=== PATIENT | male | born 1975 | race Caucasian/White ===

== ENCOUNTER 2024-05-06 05:58 | Day surgery (SDC) | payer OTHER ==
[~2024-05-06] VITALS: Ht 177.8 cm; Wt 95.0 kg
[~2024-05-06 05:58] MED LIST: LACTATED RINGER'S 1,000 ML IV SCH
[2024-05-06 06:12] VITALS: BP 144/89
[2024-05-06 06:41] LABS: BASOPHILS 0.9 % (0-2); EOSINOPHILS 2.2 % (0-6); HEMATOCRIT 43.6 % (35.0-50.0); HEMOGLOBIN 14.5 g/dL (12.0-18.0); LYMPHOCYTES 29.8 % (24-44); MCH 27.9 (27-36); MCHC 33.2 g/dl (30-36); MCV 84.1 fl (81-99); MONOCYTES 9.1 % (0-12); PLATELET COUNT 352 K/uL (140-440); RBC 5.19 M/ul (4.3-5.7); RDW 14.2 (10.5-15.0)
[2024-05-06 06:55] LABS: ALBUMIN 3.7 g/dL (3.4-5.0); ALBUMIN/GLOBULIN RATIO 1.19 (1.1-2.4); ANION GAP 16.8 (7-21); BILIRUBIN, TOTAL 0.3 ng/dL (0.2-1.0); BUN/CREATININE RATIO 17.3 (6.0-28.6); CALCIUM 9.5 mg/dL (8.5-10.1); CREATININE, SERUM 1.04 mg/dL (0.70-1.30); POTASSIUM 3.8 mmol/L (3.5-5.1); PROTEIN, TOTAL 6.8 g/dL (6.4-8.2)
[2024-05-06] MEDS ORDERED: IBLOOD GLUCOSE TEST STRIP 1 EA TEST VI PRN ×2 (07:00→08:15)
[2024-05-06] MEDS ORDERED: CEFAZOLIN SODIUM 2 GM/20 ML SYR IV SCH (07:00)
[2024-05-06] MEDS ORDERED: HEParin SOD (PORCINE) 5,000 UNIT/ML SDV SUB-Q SCH (07:00)
[2024-05-06] MEDS ORDERED: LIDOCAINE HCL 1% 5 ML SDV INJ ONE (07:00)
[2024-05-06] MEDS ORDERED: DEXAMETHASONE SOD PHOS 4 MG/ML VIAL ONE (07:18)
[2024-05-06] MEDS ORDERED: propofoL 200 MG/20 ML VIAL ONE (07:18)
[2024-05-06] MEDS ORDERED: ondansetron HCL 4 MG/2 ML VIAL ONE (07:18)
[2024-05-06] MEDS ORDERED: fentaNYL citrate 100 MCG/2 ML VIAL ONE (07:18)
[2024-05-06] MEDS ORDERED: ACETAMINOPHEN 1,000 MG/100 ML VIAL ONE (07:18)
[2024-05-06] MEDS ORDERED: LIDOCAINE HCL 2% 20 MG/ML VIAL INJ ONE (07:18)
[2024-05-06] MEDS ORDERED: KETOROLAC TROMETHAMINE 30 MG/ML VIAL ONE (07:18)
[2024-05-06] MEDS ORDERED: MIDAZOLAM HCL 2 MG/2 ML VIAL ONE (07:18)
--- NOTE | 2024-05-06 07:38 | NUR ---
PT NOT AVAILABLE FOR VISIT. PROVIDED PRAYER.
[2024-05-06] MEDS ORDERED: HYDROmorphone HCL 1 MG/ML SYR IV PRN (08:15)
[2024-05-06] MEDS ORDERED: NALOXONE HCL 0.4 MG SYR IV PRN ×2 (08:15→09:15)
[2024-05-06] MEDS ORDERED: fentaNYL citrate 50 MCG/ML SDV IV PRN (08:15)
[2024-05-06] MEDS ORDERED: droPERidol 5 MG/2 ML VIAL IV PRN (08:15)
[2024-05-06] MEDS ORDERED: ondansetron HCL 4 MG/2 ML VIAL IV PRN (08:15)
[2024-05-06] MEDS ORDERED: PROCHLORPERAZINE EDISYLATE 10 MG/2 ML VIAL IV PRN (08:15)
--- NOTE | 2024-05-06 09:03 | NUR ---
05/06/24 0903 Rossy Bess 0854- PT PRESENTS TO PACU, SEMI CURRY POSITION, NON REACTIVE TO STIMULUS. OPA IN PLACE, BREATHING EVEN AND NON LABORED, O2 AT 6L PER MASK. LR INFUSING TO LEFT HAND, DRESSING TO LEFT SCAPULA AND DRAIN IN PLACE. ABD SOFT, NON DISTENDED. ALL MONITORS IN PLACE.
[2024-05-06] MEDS ORDERED: HYDROCODON-ACE1 EA10 PO (09:06)
[2024-05-06] MEDS ORDERED: IBUPROFEN600 MG PO (09:06)
[2024-05-06] MEDS ORDERED: ACETAMINOPHEN500 MG PO (09:07)
[2024-05-06] MEDS ORDERED: LACTATED RINGER'S 1,000 ML IV SCH (09:15)
[2024-05-06] MEDS ORDERED: HYDROCODONE/ACETA 5/325 TAB PO PRN (09:15)
[2024-05-06] MEDS ORDERED: ACETAMINOPHEN 500 MG TAB PO PRN (09:15)
[2024-05-06] MEDS ORDERED: IBUPROFEN 600 MG TAB PO PRN (09:15)
[2024-05-06 09:20] VITALS: BP 131/76
--- NOTE | 2024-05-06 09:25 | NUR ---
Patient returns to room 9 from PACU. Report taken from JUAN Blair. Patient is awake and responding to questions upon arrival but states that he still feels drowsy. Patient has two surgical sites to his left shoulder, with a montez drain in place to his inferior site. Dressings and drain are intact. He denies any pain or nausea. Water and applesauce provided to patient. I explained to patient the expectations to be able to leave and he expressed understanding. He denies any other needs at this time. Two corrections officers remain at bedside. Bed in lowest position, call light within reach.
[2024-05-06 10:30] VITALS: BP 142/90
--- NOTE | 2024-05-06 10:35 | NUR ---
Patient at this time has met all discharge criteria. He has drank, ate, voided, and walked. He states that he feels well and is ready to leave. Report has been called to [facility]. Questions answered. Vital signs obtained. Dressings to left shoulder dry and intact. Carmine drain is draining well. Drain emptied for 10mL of sanguinous drainage. Patient reports pain a 1/10. He denies nausea. I went over discharge instructions with patient and he expressed understanding. I taught the patient how to empty his drain and he expressed understanding. IV removed. Patient was discharged via wheelchair in custody of [facility] corrections officers.
[2024-05-06] MEDS ORDERED: SEVOFLURANE 250 ML BTL INH ONE (14:09)
--- NOTE | 2024-05-07 13:03 | OR ---
[facility] [address], [place] [address] Signed DATE OF OPERATION: 05/06/2024 SURGEON: Adriel Daley MD PREOPERATIVE DIAGNOSIS: Left posterior superior giant soft tissue mass. POSTOPERATIVE DIAGNOSES: 1. Left posterior superior giant soft tissue mass. 2. 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 PROCEDURES: Excision of giant subfascial posterior superior thorax soft tissue mass. ANESTHESIA: General LMA, Kobi Quick CRNA and local 0.25% Marcaine with epinephrine. INDICATION: This 49-year-old white man is a prisoner at [facility] and was referred for evaluation of soft tissue mass of the left posterior thorax in the superior aspect. The lesion is very well circumscribed, although very large clinically about 12 to 15 cm, most likely represents a benign lipoma. He is uncertain how long it has been present, though he thinks it has grown overtime. It has been present at least two years he says. He is admitted at this time to undergo excision of the mass. He understands the risk of bleeding, infection, and need for special wound therapy and so forth. Understanding this, he wished to proceed. FINDINGS: The lipoma was most likely benign multilobulated, benign lipoma. It was down to the trapezius muscle and latissimus muscle itself. It was excised completely. Given the large space resulting, a drain was placed. DESCRIPTION OF PROCEDURE: The patient was brought to the operating room and given a general LMA type anesthetic in the lateral position left side up. His left arm was carefully padded and taped anteriorly to expose the area in question. The posterior thorax was prepared with chlorhexidine solution and draped sterilely. The skin tension lines were identified with creation of the skin and the incision made along those lines of skin tension to improve cosmesis. Dissection was carried through the dermis with electrocautery after incising with a 15 blade. Ultimately, capsule of what appeared to be a benign lipoma Electronically Signed By: ADRIEL DALEY MD 05/07/24 1303 PATIENT NAME: AMBER SCHULZ OPERATIVE REPORT DATE OF : 79 REPORT #: [id number] PHYSICIAN: ADRIEL DALEY MD PCP: NO PRIMARY CARE PHYSICIAN REPORT IS CONFIDENTIAL AND NOT TO BE RELEASED WITHOUT AUTHORIZATION [facility] [address], [place] [address] Signed was encountered. Using blunt dissection, the lipoma was freed circumferentially. Additional cautery was used in the deeper layers of it, it was completely adherent to the muscular fascia deeply including trapezius and latissimus muscle. It was fully excised with no remnants remaining. Cautery was used for the more sizeable blood vessels in the region. Photographs were taken. Irrigation was undertaken. Hemostasis was assured with electrocautery. Given the large space it would resolve, an incision was made in the anterior aspect and posterior axillary fold and a 7 mm flat Carmine deliver to the site. We secured the skin with a nylon suture and manipulated into the depths of the wound. The wound was then closed with interrupted 2-0 Vicryl and a running subcuticular 3-0 Vicryl for the skin. Steri-Strips were applied as was an Acticoat dressing. The drain was additionally secured to the lateral chest wall with a large OpSite. Blood loss was less than 10 mL in aggregate. Sponge, needle and instrument counts reported as correct x3. MD ELLIOT Richards/RISHIL /[id number] cc: Medical Department [facility] Copies: ~ Electronically Signed By: ADRIEL DALEY MD 05/07/24 1303 PATIENT NAME: AMBER SCHULZ OPERATIVE REPORT DATE OF : 79 REPORT #: [id number] PHYSICIAN: ADRIEL DALEY MD PCP: NO PRIMARY CARE PHYSICIAN REPORT IS CONFIDENTIAL AND NOT TO BE RELEASED WITHOUT AUTHORIZATION
--- NOTE | 2024-05-11 08:03 | PATH ---
[facility] [address] [facility] [place] [address] Signed SPECIMEN(S): A LEFT POSTERIOR THORACIC SCAPULA SPECIMEN SOURCE: A. LEFT POSTERIOR THORACIC SCAPULA CLINICAL HISTORY: Posterior thoracic left scapular soft tissue mass FINAL PATHOLOGIC DIAGNOSIS: Soft tissue, left posterior thoracic scapula, excision: - Mature adipose tissue, consistent with lipoma BRP MICROSCOPIC EXAMINATION: Histologic sections of all submitted blocks are examined by light microscopy. These findings, together with the gross examination, support the pathologic diagnosis. GROSS DESCRIPTION: The specimen, labeled and designated "Js Schulz, left posterior/superior deep soft tissue mass," is received in formalin and consists of a 10.8 x 8.5 x 3.6 cm portion reveal lobulated fibroadipose tissue with a scant amount of attached muscle and fascial plane. The outer surface is inked blue and the specimen is serially sectioned revealing a yellow homogenous cut surface. There are no discrete areas of hemorrhage or necrosis. Campus [facility] sections are submitted in cassette A1. AA (under the direct supervision of a pathologist) The Gross Description was prepared using a voice recognition system. The report was reviewed for accuracy; however, sound-alike word errors, addition and/or deletions may occur. If there is any question about this report, please contact Client Services. ADDITIONAL NOTES: Immunohistochemical and/or in situ hybridization studies if performed in this case included appropriate positive controls that reacted as expected. This test was developed and its performance characteristics determined by [facility]. It has not been cleared or approved by the U.S. Food and Drug Administration. The FDA has determined that such clearance or approval is not necessary. This test is used for clinical purposes. It should not be regarded PATIENT NAME: AMBER SCHULZ PATHOLOGY DATE OF : 79 REPORT #: [id number] PHYSICIAN: RAYNA PATHOLOGY PCP: NO PRIMARY CARE PHYSICIAN REPORT IS CONFIDENTIAL AND NOT TO BE RELEASED WITHOUT AUTHORIZATION [facility] [address] [place], [place] [address] Signed as investigational or for research. [facility] is certified under the Clinical Laboratory Improvement Amendments of 1988 (CLIA) as qualified to perform high complexity clinical laboratory testing. PERFORMING LABORATORY: Technical component was performed by [facility], [address] [place] [address] (CLIA# [id number]). Professional interpretation was performed by [facility], [address] [place] [address] (CLIA#: [id number]). Diagnostician: Andrea Newsome MD Pathologist Electronically Signed 05/11/2024 Copies: ~ PATIENT NAME: AMBER SCHULZ PATHOLOGY DATE OF : 79 REPORT #: [id number] PHYSICIAN: RAYNA PATHOLOGY PCP: NO PRIMARY CARE PHYSICIAN REPORT IS CONFIDENTIAL AND NOT TO BE RELEASED WITHOUT AUTHORIZATION
== END 2024-05-06 10:35 | disposition home or self-care (01) ==
LOC: DS 05:58
PROVIDERS: ATTEND Surgery
PROC: 0JB60ZZ Excision of Chest Subcutaneous Tissue and Fascia, Open Approach (ICD-10-PCS; principal; 2024-05-06 07:30)
DX: R22.2 Localized swelling, mass and lump, trunk (principal); Z93.3 Colostomy status
CPT/HCPCS: 00300; 36415; 80053; 85025; J0131; J0690; J1100; J1644; J1885; J2250; J2405; J2704; J3010; J7121